=== PATIENT | female | born 1945 | race Caucasian/White ===

== ENCOUNTER 2018-05-06 09:51 | Day surgery (SDC) | payer OTHER, MEDICARE ==
[~2018-05-06 09:51] MED LIST: ROCURONIUM 50 MG INJ
[2018-05-06] MEDS ORDERED: ROCURONIUM 50 MG INJ (12:11)
[2018-05-06] MEDS ORDERED: GLYCOPYRROLATE 0.4 MG INJ (12:11)
[2018-05-06] MEDS ORDERED: DEXAMETHASONE 4 MG/ML 1 ML INJ (12:11)
[2018-05-06] MEDS ORDERED: MIDAZOLAM 1 MG/ML 2 ML INJ (12:11)
[2018-05-06] MEDS ORDERED: FENTAnyl 50 MCG/ML VIAL ×2 (12:11→14:10)
[2018-05-06] MEDS ORDERED: CEFAZOLIN 1 GM INJ (12:11)
[2018-05-06] MEDS ORDERED: PROPOFOL 20 ML (12:11)
[2018-05-06] MEDS ORDERED: ONDANSETRON 4 MG INJ (12:11)
[2018-05-06] MEDS ORDERED: NEOSTIGMINE 3 MG/3 ML SYRINGE (12:11)
[2018-05-06] MEDS ORDERED: ACETAMINOPHEN 325 MG TAB PO (12:30)
[2018-05-06] MEDS ORDERED: BISACODYL 10 MG SUPP PR (12:30)
[2018-05-06] MEDS ORDERED: NALOXONE (0.4 MG/ML) INJ IV (12:30)
[2018-05-06] MEDS ORDERED: DIPHENHYDRAMINE 50 MG INJ IV ×2 (12:30→13:00)
[2018-05-06] MEDS ORDERED: AL HYDROX/MG HYDROX/SIMETH 30 ML CUP PO (12:30)
[2018-05-06] MEDS ORDERED: HYDROmorphONE 0.5 MG/0.5 ML SYG IV (12:30)
[2018-05-06] MEDS ORDERED: ONDANSETRON 4 MG INJ IV (12:30)
[2018-05-06] MEDS ORDERED: CARISOPRODOL 350 MG TAB PO (12:30)
[2018-05-06] MEDS: THROMBIN 5000 UNIT VIAL (12:56)
[2018-05-06] MEDS: POLYMYXIN/BACITRACIN 1L IRRIG IRR (12:56)
[2018-05-06] MEDS: BUPIVACAINE 0.25%/EPI (SDV) 30 ML INJ (12:56)
[2018-05-06] MEDS: SURGIFOAM POWDER 1 GM KIT (12:56)
[2018-05-06] MEDS ORDERED: HEPARIN 1000 UNITS/ML 10 ML INJ (12:57)
[2018-05-06] MEDS ORDERED: HYDROmorphONE 1 MG/5 ML IV SYRINGE IV ×3 (13:00)
[2018-05-06] MEDS ORDERED: TRIMETHOBENZAMIDE 100 MG/ML VIAL IM (13:00)
[2018-05-06] MEDS ORDERED: MEPERIDINE 25 MG INJ IV (13:00)
[2018-05-06] MEDS ORDERED: hydrALAzine 20 MG INJ IV (13:00)
[2018-05-06] MEDS ORDERED: ALBUTEROL 0.083% (NEB) 2.5 MG/3 ML AMP HHN (13:00)
[2018-05-06] MEDS ORDERED: MIDAZOLAM 1 MG/ML 2 ML INJ IV (13:00)
[2018-05-06] MEDS ORDERED: IPRATROPIUM (NEB) 0.5 MG/2.5 ML AMP HHN (13:00)
[2018-05-06] MEDS ORDERED: OXYCODONE/ACETAMINOPHEN (5/325) TAB PO ×2 (13:00)
[2018-05-06] MEDS ORDERED: EPHEDrine SULFATE 50 MG/5 ML SYG IV (13:00)
[2018-05-06] MEDS ORDERED: FENTAnyl 50 MCG/ML VIAL IV ×2 (13:00)
[2018-05-06] MEDS ORDERED: LABETALOL HCL 20MG INJ IV (13:00)
[2018-05-06] MEDS: CEFAZOLIN 1 GM/50 ML (PMX) 50 ML IVPB ×3 (13:16→22:58)
[2018-05-06] MEDS: HYDROmorphONE 0.2 MG/ML PCA IV (15:23)
[2018-05-06] MEDS: FENTAnyl 50 MCG/ML VIAL IV (15:27)
[2018-05-06] MEDS: ONDANSETRON 4 MG INJ IV (15:27)
[2018-05-06] MEDS: D5W-0.45 NACL + KCL 20 MEQ 1,000 ML IV ×2 (18:47→22:11)
[2018-05-06] MEDS: DOCUSATE SODIUM 100 MG CAP PO (21:16)
[2018-05-06] MEDS: CEPASTAT LOZENGE MT (22:59)
[2018-05-07] MEDS: ZOLPIDEM 5 MG TAB PO (01:26)
[2018-05-07] MEDS: D5W-0.45 NACL + KCL 20 MEQ 1,000 ML IV (04:51)
[2018-05-07] MEDS: HYDROmorphONE 0.2 MG/ML PCA IV (04:56)
[2018-05-07 05:13] LABS: ADD MAN DIFF? NO
[2018-05-07 05:18] LABS: BASOPHILS % 0.1 % (0.0-2.0); HEMATOCRIT 39.8 % (37.0-47.0); HEMOGLOBIN 12.9 g/dl (12.0-16.0); LYMPHOCYTES # 0.7 10^3/ul (0.8-2.9); LYMPHOCYTES % 5.4 % (15.0-51.0); MEAN CORPUSCULAR HEMOGLOBIN 30.2 pg (29.0-33.0); MEAN CORPUSCULAR HGB CONC 32.4 g/dl (32.0-37.0); MEAN CORPUSCULAR VOLUME 93.2 fl (82.0-101.0); MEAN PLATELET VOLUME 11.3 fl (7.4-10.4); MONOCYTE # 0.9 10^3/ul (0.3-0.9); MONOCYTES % 7.3 % (0.0-11.0); NEUTROPHIL # 10.5 10^3/ul (1.6-7.5); NEUTROPHILS % 86.8 % (39.0-77.0); PLATELET COUNT 229 10^3/UL (140-415); RED BLOOD COUNT 4.27 10^6/ul (4.20-5.40); RED CELL DISTRIBUTION WIDTH 12.6 % (11.5-14.5)
[2018-05-07 05:18] LABS: WHITE BLOOD COUNT 12.1 10^3/ul (4.8-10.8)
[2018-05-07 06:02] LABS: ANION GAP 8 (5-13); BLOOD UREA NITROGEN 14 mg/dl (7-20); CALCIUM 10.1 mg/dl (8.4-10.2); CARBON DIOXIDE 24 mmol/L (21-31); CHLORIDE 108 mmol/L (97-110); CREATININE 0.84 mg/dl (0.44-1.00); GLUCOSE 130 mg/dl (70-220); MAGNESIUM 2.1 mg/dl (1.7-2.5); POTASSIUM 5.2 mmol/L (3.5-5.1); SODIUM 140 mmol/L (135-144)
[2018-05-07] MEDS: CEFAZOLIN 1 GM/50 ML (PMX) 50 ML IVPB (06:24)
[2018-05-07] MEDS: DULOXETINE 30 MG CAP DR PO (09:31)
[2018-05-07] MEDS: BUPROPION (SR) 150 MG TAB PO (09:32)
[2018-05-07] MEDS: DOCUSATE SODIUM 100 MG CAP PO (09:36)
[2018-05-07] MEDS: HYDROCODONE/APAP (10/325) TAB PO ×3 (09:36→14:31)
[2018-05-07] MEDS: SOD CHLORIDE 0.9% 1,000 ML IV (10:19)
== END 2018-05-07 15:45 | disposition home or self-care (01) ==
LOC: SDS 09:51 → REC 12:22 → MS1 16:25 → SDS 12:22 → MS1 13:05 → SDS 05-07 15:45
DX: M54.16 Radiculopathy, lumbar region (principal)
CPT/HCPCS: 63030; 72020; 80048; 83735; 85025; 86999; 97116; 97161; 97530